=== PATIENT | female | born 1970 | race Caucasian/White ===

== ENCOUNTER 2019-03-27 06:45 | Observation (INO) | payer OTHER ==
[~2019-03-27] VITALS: Ht 162.6 cm; Wt 74.8 kg
--- NOTE | 2019-03-27 06:50 | ED Abdominal Pain ---
General Stated Complaint: ABD PAIN History of Present Illness Date Seen by Provider: Mar 27, 2019 Time Seen by Provider: 06:49 Initial Comments Patient presents emergency department for evaluation of abdominal pain that started last night but became worse this morning and she describes it as intense burning and stabbing pain in her epigastric region that caused her nausea but no vomiting fevers chills diarrhea constipation dysuria hematuria. She denies any chest pain or shortness of breath to me. She says she still has her gallbladder. She appears uncomfortable but nontoxic and says that the pain is easing up since early this morning. She appears to be tachycardic and irregular so an EKG was obtained that showed that she was in atrial fibrillation. She says this would be a new diagnosis for her. Allergies and Home Medications Allergies Coded Allergies: No Known Drug Allergies (Unverified , 03/27/19) Patient Home Medication List Home Medication List Reviewed: Yes Review of Systems Review of Systems Constitutional: no symptoms reported EENTM: No Symptoms Reported Respiratory: No Symptoms Reported Cardiovascular: No Symptoms Reported Gastrointestinal: Abdominal Pain, Nausea Genitourinary: No Symptoms Reported Musculoskeletal: no symptoms reported Skin: no symptoms reported Psychiatric/Neurological: No Symptoms Reported All Other Systems Reviewed Negative Unless Noted: Yes Physical Exam Vital Signs Vital Signs - First Documented 03/27/19 06:50 Temp 98.4 Pulse 96 Resp 18 B/P (MAP) 156/73 (100) Pulse Ox 99 O2 Delivery Room Air Capillary Refill : Height/Weight/BMI Height: '" Weight: lbs. oz. kg; BMI Method: General Appearance: WD/WN, no apparent distress HEENT: PERRL/EOMI Neck: supple Respiratory: no respiratory distress Cardiovascular: tachycardia, irregularly irregular Gastrointestinal: soft; No guarding, No rebound; tenderness (epigastrum primarily, mild ttp in RUQ) Rectal: deferred Extremities: no pedal edema Back: normal inspection Neurologic/Psychiatric: alert, oriented x 3 Skin: warm/dry Progress/Results/Core Measures Results/Orders Lab Results Laboratory Tests Test 03/27/19 06:52 03/27/19 07:49 Range/Units White Blood Count 8.2 4.3-11.0 10^3/uL Red Blood Count 4.86 4.35-5.85 10^6/uL Hemoglobin 14.0 11.5-16.0 G/DL Hematocrit 42 35-52 % Mean Corpuscular Volume 87 80-99 FL Mean Corpuscular Hemoglobin 29 25-34 PG Mean Corpuscular Hemoglobin Concent 33 32-36 G/DL Red Cell Distribution Width 13.6 10.0-14.5 % Platelet Count 313 130-400 10^3/uL Mean Platelet Volume 10.8 H 7.4-10.4 FL Neutrophils (%) (Auto) 48 42-75 % Lymphocytes (%) (Auto) 41 12-44 % Monocytes (%) (Auto) 7 0-12 % Eosinophils (%) (Auto) 3 0-10 % Basophils (%) (Auto) 1 0-10 % Neutrophils # (Auto) 3.9 1.8-7.8 X 10^3 Lymphocytes # (Auto) 3.4 1.0-4.0 X 10^3 Monocytes # (Auto) 0.5 0.0-1.0 X 10^3 Eosinophils # (Auto) 0.3 0.0-0.3 10^3/uL Basophils # (Auto) 0.1 0.0-0.1 10^3/uL Sodium Level 142 135-145 MMOL/L Potassium Level 3.2 L 3.6-5.0 MMOL/L Chloride Level 102 98-107 MMOL/L Carbon Dioxide Level 23 21-32 MMOL/L Anion Gap 17 H 5-14 MMOL/L Blood Urea Nitrogen 11 7-18 MG/DL Creatinine 0.91 0.60-1.30 MG/DL Estimat Glomerular Filtration Rate > 60 BUN/Creatinine Ratio 12 Glucose Level 127 H 70-105 MG/DL Calcium Level 9.4 8.5-10.1 MG/DL Corrected Calcium 8.5-10.1 MG/DL Total Bilirubin 0.5 0.1-1.0 MG/DL Aspartate Amino Transf (AST/SGOT) 46 H 5-34 U/L Alanine Aminotransferase (ALT/SGPT) 46 0-55 U/L Alkaline Phosphatase 113 40-136 U/L Troponin I < 0.30 <0.30 NG/ML Total Protein 7.5 6.4-8.2 GM/DL Albumin 4.6 H 3.2-4.5 GM/DL Lipase 31 8-78 U/L Urine Color YELLOW Urine Clarity CLEAR Urine pH 7.0 5-9 Urine Specific [place] 1.010 L 1.016-1.022 Urine Protein NEGATIVE NEGATIVE Urine Glucose (UA) NEGATIVE NEGATIVE Urine Ketones NEGATIVE NEGATIVE Urine Nitrite NEGATIVE NEGATIVE Urine Bilirubin NEGATIVE NEGATIVE Urine Urobilinogen 0.2 NORMAL MG/DL Urine Leukocyte Esterase TRACE H NEGATIVE Urine RBC (Auto) NEGATIVE NEGATIVE Urine RBC NONE /HPF Urine WBC 5-10 H /HPF Urine Squamous Epithelial Cells 5-10 /HPF Urine Crystals NONE /LPF Urine Bacteria NEGATIVE /HPF Urine Casts NONE /LPF Urine Mucus NEGATIVE /LPF Urine Culture Indicated YES My Orders Orders - JOSEPHINE ORTIZ DO Ct Abdomen/Pelvis W (03/27/19 06:52) Cbc With Automated Diff (03/27/19 06:52) Comprehensive Metabolic Panel (03/27/19 06:52) Lipase (03/27/19 06:52) Troponin I (03/27/19 06:52) Ua Culture If Indicated (03/27/19 06:52) Ekg Tracing (03/27/19 06:52) Ns Iv 1000 Ml (Sodium Chloride 0.9%) (03/27/19 07:00) Antacid Suspension (Mylanta Suspension (03/27/19 07:00) Ondansetron Injection (Zofran Injectio (03/27/19 07:00) Fentanyl Injection (Sublimaze Injection (03/27/19 07:00) Pantoprazole Injection (Protonix Injecti (03/27/19 07:00) Iohexol Injection (Omnipaque 350 Mg/Ml 1 (03/27/19 07:00) Received Contrast (Hold Metformin- Contr (03/27/19 07:00) Sodium Chloride Flush (Catheter Flush Sy (03/27/19 07:00) Ns (Ivpb) (Sodium Chloride 0.9% Ivpb Bag (03/27/19 07:00) Lidocaine 2% Viscous 15 Ml (Xylocaine Vi (03/27/19 07:15) Potassium Chloride (Tablet) (K Dur Table (03/27/19 07:45) Magnesium 1 Gm/100 Ml Ivpb (Magnesium Rosales (03/27/19 07:45) Urine Culture (03/27/19 07:49) Medications Given in ED Current Medications Medications Dose Ordered Sig/Angela Route Start Time Stop Time Status Last Admin Dose Admin Al Hydrox/Mg Hydrox/Simethicone 30 ml ONCE ONCE PO 03/27/19 07:00 03/27/19 07:01 DC 03/27/19 07:15 30 ML Fentanyl Citrate 50 mcg ONCE ONCE IVP 03/27/19 07:00 03/27/19 07:01 DC 03/27/19 07:15 50 MCG Iohexol 100 ml ONCE ONCE IV 03/27/19 07:00 03/27/19 07:04 DC 03/27/19 07:54 80 ML Lidocaine HCl 15 ml ONCE ONCE PO 03/27/19 07:15 03/27/19 07:16 DC 03/27/19 07:16 15 ML Magnesium Sulfate/ Dextrose 100 ml @ 100 mls/hr ONCE ONCE IV 03/27/19 07:45 03/27/19 08:44 03/27/19 08:21 100 MLS/HR Ondansetron HCl 4 mg ONCE ONCE IVP 03/27/19 07:00 03/27/19 07:01 DC 03/27/19 07:02 4 MG Pantoprazole 40 mg ONCE ONCE IV 03/27/19 07:00 03/27/19 07:01 DC 03/27/19 07:15 40 MG Potassium Chloride 40 meq ONCE ONCE PO 03/27/19 07:45 03/27/19 07:46 DC 03/27/19 08:21 40 MEQ Sodium Chloride 10 ml NEEDED PRN IV 03/27/19 07:00 03/27/19 07:54 10 ML Sodium Chloride 100 ml ONCE ONCE IV 03/27/19 07:00 03/27/19 07:04 DC 03/27/19 07:54 80 ML Vital Signs/I&O 03/27/19 06:50 Temp 98.4 Pulse 96 Resp 18 B/P (MAP) 156/73 (100) Pulse Ox 99 O2 Delivery Room Air Progress Progress Note : Progress Note Patient was initially somewhat apprehensive about being admitted at [facility] [place] for her new onset atrial fibrillation. I spoke to her about the recommendations of Dr. Hanley that he would like to monitor her and try and cardiovert her either medically or electrically. I told her that they would also have to discuss her anticoagulation strategy. She wanted to wait for some family to arrive and then make a decision. By the time her family arrived she consented to being admitted. However on reassessment she is now in a normal sinus rhythm. I still do not think that she meets admission criteria given this is new onset atrial fibrillation and likely needs echocardiogram and monitored and they can further discuss anticoagulation strategy. I will defer anticoagulation pain medications at this time as her heart rate and blood pressure are normal. Her abdominal pain is likely from gastritis or enteritis however she does have gallstones. An ultrasound could be obtained if indicated however she has no localized pain in the right upper quadrant at this time. Patient transferred in stable condition, with Dr. Nicolas accepting. Departure Impression Primary Impression: Abdominal pain Additional Impressions: Enteritis New onset a-fib Hypokalemia Disposition: ADMITTED INPATIENT Condition: Stable Departure-Patient Inst. Referrals: NO,LOCAL PHYSICIAN (PCP) Primary Care Physician JOSEPHINE ORTIZ DO Mar 27, 2019 06:50
[2019-03-27] MEDS ORDERED: NS 100 ML (IVPB) BAG IV ONE (07:00)
[2019-03-27] MEDS ORDERED: PANTOPRAZOLE 40 MG (PROTONIX) VIAL IV ONE (07:00)
[2019-03-27] MEDS ORDERED: IOHEXOL 350 MG/ML 100 ML (OMNIPAQUE 350) VIAL IV ONE (07:00)
[2019-03-27] MEDS ORDERED: NS IV 1000 ML 1,000 ML IV SCH (07:00)
[2019-03-27] MEDS ORDERED: fentaNYL INJECTION 100 MCG/2 ML AMP IVP ONE (07:00)
[2019-03-27] MEDS ORDERED: ONDANSETRON 4 MG/2 ML (SDV) Z0FRAN IVP ONE (07:00)
[2019-03-27] MEDS ORDERED: ANTACID SUSP 30 ML UDC (MYLANTA) PO ONE (07:00)
[2019-03-27] MEDS ORDERED: HOLD METFORMIN - RECEIVED CONTRAST 20 ML VIAL IV SCH (07:00)
[2019-03-27] MEDS ORDERED: LIDOCAINE 2% VISCOUS 15 ML UDC PO ONE (07:15)
[2019-03-27 07:17] LABS: BASOPHILS # (AUTO) 0.1 10^3/uL (0.0-0.1); BASOPHILS % (AUTO) 1 % (0-10); EOSINOPHILS # (AUTO) 0.3 10^3/uL (0.0-0.3); EOSINOPHILS % (AUTO) 3 % (0-10); HEMATOCRIT 42 % (35-52); LYMPHOCYTES # (AUTO) 3.4 X 10^3 (1.0-4.0); LYMPHOCYTES % (AUTO) 41 % (12-44); MEAN CORPUSCULAR HEMOGLOBIN 29 PG (25-34); MEAN CORPUSCULAR HGB CONC 33 G/DL (32-36); MEAN CORPUSCULAR VOLUME 87 FL (80-99); MEAN PLATELET VOLUME 10.8 FL (7.4-10.4); MONOCYTES # (AUTO) 0.5 X 10^3 (0.0-1.0); MONOCYTES % (AUTO) 7 % (0-12); NEUTROPHILS # (AUTO) 3.9 X 10^3 (1.8-7.8); NEUTROPHILS % (AUTO) 48 % (42-75); PLATELET COUNT 313 10^3/uL (130-400); RED CELL DISTRIBUTION WIDTH 13.6 % (10.0-14.5); WHITE BLOOD COUNT 8.2 10^3/uL (4.3-11.0)
[2019-03-27 07:29] LABS: BUN/CREATININE RATIO 12; CARBON DIOXIDE 23 MMOL/L (21-32); CHLORIDE 102 MMOL/L (98-107); CREATININE SERUM 0.91 MG/DL (0.60-1.30); GFR ESTIMATED > 60; POTASSIUM 3.2 MMOL/L (3.6-5.0); SODIUM 142 MMOL/L (135-145)
[2019-03-27 07:30] LABS: ALANINE AMINOTRANSFERASE 46 U/L (0-55); ALBUMIN 4.6 GM/DL (3.2-4.5); ALKALINE PHOSPHATASE 113 U/L (40-136); BILIRUBIN,TOTAL 0.5 MG/DL (0.1-1.0); CALCIUM 9.4 MG/DL (8.5-10.1); GLUCOSE 127 MG/DL (70-105); LIPASE 31 U/L (8-78); TOTAL PROTEIN 7.5 GM/DL (6.4-8.2)
[2019-03-27] MEDS ORDERED: KCL 20 MEQ TAB (K-DUR) PO ONE (07:45)
[2019-03-27] MEDS ORDERED: MAGNESIUM 1 GM/100 ML IVPB 100 ML IV ONE (07:45)
[2019-03-27] MEDS: CATHETER FLUSH 10 ML SYR IV PRN (07:54)
[2019-03-27 08:06] LABS: CLARITY,URINE CLEAR; COLOR,URINE YELLOW
[2019-03-27 08:10] LABS: BACTERIA,URINE NEGATIVE /HPF; BILIRUBIN,URINE NEGATIVE (NEGATIVE); GLUCOSE, URINE (UA) NEGATIVE (NEGATIVE); KETONES,URINE NEGATIVE (NEGATIVE); LEUKOCYTE ESTERASE ,URINE TRACE (NEGATIVE); NITRITE,URINE NEGATIVE (NEGATIVE); PROTEIN,URINE NEGATIVE (NEGATIVE); UROBILINOGEN,URINE 0.2 MG/DL (NORMAL)
--- NOTE | 2019-03-27 08:15 | Diagnostic Imaging Report ---
INDICATION: Epigastric pain. CT of the abdomen and pelvis obtained with IV contrast bolus. There is no prior study for comparison. FINDINGS: The visualized portions of the lung bases are clear. There were no pleural fluid collections. There is no free intraperitoneal air. The liver shows mild fatty change with no focal lesion. Gallbladder shows numerous large gallstones filling the gallbladder lumen. The spleen, adrenals, and pancreas appear normal. The right kidney is markedly atrophic and scarred. The left kidney appears normal. There is no retroperitoneal mass or adenopathy. There is no ascites or abscess. There are a few fluid-filled loops of small bowel with some minimal bowel wall thickening. There is no pelvic mass or free fluid. Urinary bladder appears unremarkable. IMPRESSION: There are numerous gallstones filling the gallbladder. There is mild fatty change in the liver. There is no biliary dilatation. The right kidney appears chronically atrophic and scarred. There are a few scattered fluid-filled loops of small bowel with minimal thickening, enteritis cannot be excluded. There is no evidence of abscess. Dictated by: Dictated on workstation # [id number]
--- NOTE | 2019-03-27 10:50 | NUR ---
LUIZ HAAS Panfilo admitted to room 425-1, with an admitting diagnosis of NEW ONSET A-FIB, on 03/27/19 from [facility] via EMS, accompanied by EMS STAFF. LUIZ HAAS introduced to surroundings, call light, bed controls, phone, TV, temperature control, lights, meal times, smoking policy, visitor policy, side rail policy, bathrooms and showers. Patient Rights given to patient in the handbook. LUIZ HAAS verbalizes understanding that [facility] is not responsible for the loss or damage to any personal effects or valuables that are kept in the patients possession during their hospitalization.
--- NOTE | 2019-03-27 11:06 | History & Physical ---
HPI History of Present Illness: 49 yo female came to ER after about an hour of severe epigastric pain, feeling that she needs to vomit. She thought it might be gall bladder, has had similar episode about a year ago. Date seen by provider: Mar 27, 2019 Time Seen by Provider: 11:00 Attending Physician Shanell Nicolas MD PCP [place] [place] Date of Admission Mar 27, 2019 at 09:15 Home Medications Home Medications Reviewed patient Home Medication Reconciliation performed by pharmacy medication reconciliations teletype technician and/or nursing. Patients Allergies have been reviewed. Allergies Coded Allergies: No Known Drug Allergies (Unverified , 03/27/19) ROC-Iijxgx-Xfbohj Hx Patient Social History Alcohol Use: Rarely Uses Recreational Drug Use: No Smoking Status: Never a Smoker 2nd Hand Smoke Exposure: No Recent Foreign Travel: No Contact w/other who traveled: No Recent Hopitalizations: No Recent Infectious Disease Expo: No Past Medical History PMHx: Nonfunctioning right kidney- reports had surgery as a child for vesicoureteral reflux PSurgHx: Right vesicoureteral reflux surgery Family Medical History Significant Family History: Cancer (mother- uterine), Hypertension Review of Systems ([facility]) Constitutional: No fever EENTM: No nose congestion, No throat pain Respiratory: No cough, No short of breath Cardiovascular: No chest pain Gastrointestinal: abdominal pain, constipation; No diarrhea; nausea Genitourinary: No dysuria Musculoskeletal: No joint pain Skin: No rash Psychiatric/Neurological: No Symptoms Reported Reviewed Test Results Reviewed Test Results Lab Laboratory Tests Test 03/27/19 06:52 03/27/19 07:49 03/27/19 19:03 Range/Units White Blood Count 8.2 4.3-11.0 10^3/uL Red Blood Count 4.86 4.35-5.85 10^6/uL Hemoglobin 14.0 11.5-16.0 G/DL Hematocrit 42 35-52 % Mean Corpuscular Volume 87 80-99 FL Mean Corpuscular Hemoglobin 29 25-34 PG Mean Corpuscular Hemoglobin Concent 33 32-36 G/DL Red Cell Distribution Width 13.6 10.0-14.5 % Platelet Count 313 130-400 10^3/uL Mean Platelet Volume 10.8 H 7.4-10.4 FL Neutrophils (%) (Auto) 48 42-75 % Lymphocytes (%) (Auto) 41 12-44 % Monocytes (%) (Auto) 7 0-12 % Eosinophils (%) (Auto) 3 0-10 % Basophils (%) (Auto) 1 0-10 % Neutrophils # (Auto) 3.9 1.8-7.8 X 10^3 Lymphocytes # (Auto) 3.4 1.0-4.0 X 10^3 Monocytes # (Auto) 0.5 0.0-1.0 X 10^3 Eosinophils # (Auto) 0.3 0.0-0.3 10^3/uL Basophils # (Auto) 0.1 0.0-0.1 10^3/uL Sodium Level 142 135-145 MMOL/L Potassium Level 3.2 L 3.6-5.0 MMOL/L Chloride Level 102 98-107 MMOL/L Carbon Dioxide Level 23 21-32 MMOL/L Anion Gap 17 H 5-14 MMOL/L Blood Urea Nitrogen 11 7-18 MG/DL Creatinine 0.91 0.60-1.30 MG/DL Estimat Glomerular Filtration Rate > 60 BUN/Creatinine Ratio 12 Glucose Level 127 H 70-105 MG/DL Calcium Level 9.4 8.5-10.1 MG/DL Corrected Calcium 8.5-10.1 MG/DL Total Bilirubin 0.5 0.1-1.0 MG/DL Aspartate Amino Transf (AST/SGOT) 46 H 5-34 U/L Alanine Aminotransferase (ALT/SGPT) 46 0-55 U/L Alkaline Phosphatase 113 40-136 U/L Troponin I < 0.30 < 0.028 <0.028 NG/ML Total Protein 7.5 6.4-8.2 GM/DL Albumin 4.6 H 3.2-4.5 GM/DL Lipase 31 8-78 U/L Urine Color YELLOW Urine Clarity CLEAR Urine pH 7.0 5-9 Urine Specific [place] 1.010 L 1.016-1.022 Urine Protein NEGATIVE NEGATIVE Urine Glucose (UA) NEGATIVE NEGATIVE Urine Ketones NEGATIVE NEGATIVE Urine Nitrite NEGATIVE NEGATIVE Urine Bilirubin NEGATIVE NEGATIVE Urine Urobilinogen 0.2 NORMAL MG/DL Urine Leukocyte Esterase TRACE H NEGATIVE Urine RBC (Auto) NEGATIVE NEGATIVE Urine RBC NONE /HPF Urine WBC 5-10 H /HPF Urine Squamous Epithelial Cells 5-10 /HPF Urine Crystals NONE /LPF Urine Bacteria NEGATIVE /HPF Urine Casts NONE /LPF Urine Mucus NEGATIVE /LPF Urine Culture Indicated YES Radiology CT abd/pelvis 03/27: "IMPRESSION: There are numerous gallstones filling the gallbladder. There is mild fatty change in the liver. There is no biliary dilatation. The right kidney appears chronically atrophic and scarred. There are a few scattered fluid-filled loops of small bowel with minimal thickening, enteritis cannot be excluded. There is no evidence of abscess." Physical Exam-([facility]) Physical Exam Vital Signs VS - Last 72 Hours, by Label 03/27/19 03/27/19 03/27/19 03/27/19 06:50 09:55 11:45 12:00 Temp 98.4 98.4 99.4 99.4 Pulse 96 92 65 65 Resp 18 18 18 18 B/P (MAP) 156/73 (100) 139/62 (87) 135/85 135/85 (102) Pulse Ox 99 99 99 99 O2 Delivery Room Air Room Air Room Air 03/27/19 03/27/19 03/27/19 15:15 16:00 16:37 Temp 98.4 Pulse 79 74 Resp 18 B/P (MAP) 135/79 (97) Pulse Ox 99 99 O2 Delivery Room Air Room Air Capillary Refill : Less Than 3 Seconds General Appearance: WD/WN, no apparent distress Respiratory: lungs clear, normal breath sounds Cardiovascular: regular rate, rhythm, no murmur Gastrointestinal: normal bowel sounds, non tender, soft Extremities: no pedal edema Neurologic/Psychiatric: alert, normal mood/affect Skin: normal color, warm/dry Assessment/Plan Assessment/Plan Admission Status: Inpatient Order (span 2 midnights) Reason for Inpatient Admission: New onset atrial fibrillation (1) New onset a-fib Status: Acute Assessment & Plan: Converted prior to arrival on floor, Cardiology consulted. Check TSH. (2) Gall bladder stones Status: Acute Assessment & Plan: Discussed no evidence of inflammation/infection, but given her recurrent episodes of pain, may need cholecystectomy, she would like to defer to outpatient for now if possible. (3) Hypokalemia Status: Acute Assessment & Plan: Replaced in ER, recheck. (4) Enteritis Status: Acute (5) Abdominal pain Status: Acute Assessment & Plan: Gall stones and enteritis. Supportive care. (6) DVT prophylaxis Status: Acute Assessment & Plan: Started on Eliquis for atrial fibrillation. SHANELL NICOLAS MD Mar 27, 2019 11:06
--- NOTE | 2019-03-27 11:32 | Diagnostic Imaging Report ---
INDICATION: Cardiac dysrhythmia. PA and lateral views of the chest are obtained. COMPARISON: No previous study is available for comparison at this time. FINDINGS: Heart size and pulmonary vasculature are within normal limits, and the lungs are clear, bilaterally. IMPRESSION: Unremarkable chest. Dictated by: Dictated on workstation # [id number]
[2019-03-27 11:45] VITALS: BP 135/85
[2019-03-27 12:00] VITALS: BP 135/85
[2019-03-27] MEDS ORDERED: IBUP-30 PO (12:02)
[2019-03-27] MEDS: NS W/KCL 40 MEQ/L 1,000 ML IV SCH (14:00)
[2019-03-27 16:00] VITALS: BP 135/79
--- NOTE | 2019-03-27 18:48 | Consultation-Cardiology ---
HPI-Cardiology Cardiology Consultation: Date of Consultation 03/27/19 Date of Admission Attending Physician Kristen Nicolas MD Admitting Physician [facility] Consulting Physician Benedicto HANLEY MD HPI: Time Seen by a Provider: 18:48 Chief Complaint: epigastric discomfort, fatigue, possible palpitations. This is a 49-year-old lady with no past medical or cardiac history who presented with epigastric discomfort to [facility]. She also complains of fatigue for the last 2 months. Occasional palpitations in the past. She was found to be in new onset atrial fibrillation. Subsequently she converted to sinus rhythm. The patient denies any syncope, near-syncope, and lower extremity swelling. She denies any chest pain. She denies active smoking or drug abuse. She also denies any significant alcohol use. She denies any significant snoring. She denies family history of atrial fibrillation. She does have history of CO in the father. Review of Systems-Cardiology Review of Systems Constitutional: As described under HPI; No As described under HPI, No no symptoms reported, No chills, No fever, No lightheadedness; tiredness Eyes: No As described under HPI, No no symptoms reported, No blindness, No blurred vision, No contact lenses, No drainage, No decreased acuity, No foreign body sensation, No pain, No vision change Ears/Nose/Throat: No As described under HPI, No no symptoms reported, No chronic hearing loss, No ear discharge, No ear pain, No nasal drainage, No ulcerations Respiratory: No no symptoms reported; As described under HPI; No As described under HPI, No cough, No orthopnea, No shortness of breath, No SOB with excertion Cardiovascular: No no symptoms reported; As described under HPI; No As described under HPI, No chest pain, No edema, No irregular heart rate, No lightheadedness, No palpitations Gastrointestinal: No no symptoms reported, No As described under HPI, No abdomen distended; abdominal pain; No blood streaked bowels, No constipation, No diarrhea, No nausea, No vomiting, No stool coloration changes Genitourinary: No As described under HPI, No burning, No dysuria, No discharge, No frequency, No flank pain, No hematuria, No urgency : Yes : No Skin: No rash, No skin related problems, No ulcerations Psychiatric/Neurological: No anxiety, No depression, No seizure, No focal weakness, No syncope Hematologic: No bleeding abnormalities All Other Systems Reviewed Negative Unless Noted: Yes [id number]-[id number] Hx Patient Social History Alcohol Use: Rarely Uses Recreational Drug Use: No Smoking Status: Never a Smoker 2nd Hand Smoke Exposure: No Recent Foreign Travel: No Recent Infectious Disease Expo: No Past Medical History PMH As described under Assessment. Allergies and Home Medications Allergies Coded Allergies: No Known Drug Allergies (Unverified , 03/27/19) Home Medications Ibuprofen 200 Mg Tablet, 400-600 MG PO TID PRN for PAIN-MILD, (Reported) Patient Home Medication List Home Medication List Reviewed: Yes Physical Exam-Cardiology Physical Exam Vital Signs/I&O 03/27/19 03/27/19 03/27/19 03/27/19 06:50 09:55 11:45 12:00 Temp 98.4 98.4 99.4 99.4 Pulse 96 92 65 65 Resp 18 18 18 18 B/P (MAP) 156/73 (100) 139/62 (87) 135/85 135/85 (102) Pulse Ox 99 99 99 99 O2 Delivery Room Air Room Air Room Air 03/27/19 03/27/19 03/27/19 15:15 16:00 16:37 Temp 98.4 Pulse 79 74 Resp 18 B/P (MAP) 135/79 (97) Pulse Ox 99 99 O2 Delivery Room Air Room Air Capillary Refill : Less Than 3 Seconds Constitutional: appears stated age, AAO x 3; No apparent distress; well- developed, well-nourished HEENT: PERRL; No discharge; hearing is well preserved, oral hygience is good; No ulceration, No xanthelasmas are seen Neck: No carotid bruit; carotid pulses are 2 + bilaterally Respiratory: chest is bilaterally symmetric, lungs clear to auscultation Cardiovascular: regular rate-rhythm, S1 and S2 Gastrointestinal: soft, audible bowel sounds; No spleenomegaly Rectal: deferred Extremities: normal range of motion, non-tender, normal inspection; No clubbi ng, No cyanosis, No significant edema Neurologic/Psychiatric: no motor/sensory deficits, alert, normal mood/affect, oriented x 3, power is 5/5 both on sides Skin: warm/dry; No rash, No ulcerations Data Review Labs Laboratory Tests 03/27/19 06:52: White Blood Count 8.2, Red Blood Count 4.86, Hemoglobin 14.0, Hematocrit 42, Mean Corpuscular Volume 87, Mean Corpuscular Hemoglobin 29, Mean Corpuscular Hemoglobin Concent 33, Red Cell Distribution Width 13.6, Platelet Count 313, Mean Platelet Volume 10.8H, Neutrophils (%) (Auto) 48, Lymphocytes (%) (Auto) 41, Monocytes (%) (Auto) 7, Eosinophils (%) (Auto) 3, Basophils (%) (Auto) 1, Neutrophils # (Auto) 3.9, Lymphocytes # (Auto) 3.4, Monocytes # (Auto) 0.5, Eosinophils # (Auto) 0.3, Basophils # (Auto) 0.1, Sodium Level 142, Potassium Level 3.2L, Chloride Level 102, Carbon Dioxide Level 23, Anion Gap 17H, Blood Urea Nitrogen 11, Creatinine 0.91, Estimat Glomerular Filtration Rate > 60, BUN/Creatinine Ratio 12, Glucose Level 127H, Calcium Level 9.4, Corrected Calcium , Total Bilirubin 0.5, Aspartate Amino Transf (AST/SGOT) 46H, Alanine Aminotransferase (ALT/SGPT) 46, Alkaline Phosphatase 113, Troponin I < 0.30, Total Protein 7.5, Albumin 4.6H, Lipase 31 03/27/19 07:49: Urine Color YELLOW, Urine Clarity CLEAR, Urine pH 7.0, Urine Specific [place] 1.010L, Urine Protein NEGATIVE, Urine Glucose (UA) NEGATIVE, Urine Ketones NEGATIVE, Urine Nitrite NEGATIVE, Urine Bilirubin NEGATIVE, Urine Urobilinogen 0.2, Urine Leukocyte Esterase TRACEH, Urine RBC (Auto) NEGATIVE, Urine RBC NONE, Urine WBC 5-10H, Urine Squamous Epithelial Cells 5-10, Urine Crystals NONE, Urin e Bacteria NEGATIVE, Urine Casts NONE, Urine Mucus NEGATIVE, Urine Culture Indicated YES ECG Impression ECG Initial ECG Impression: Atrial Fibrillation A/P-Cardiology Assessment/Admission Diagnosis New onset atrial fibrillation, Hypertension Plan This is a 49-year-old lady with new onset atrial fibrillation which subsequently converted spontaneously. I discussed at length with the patient about pathophysiology of atrial fibrillation, stroke prevention, rate versus rhythm control, monitoring, advanced therapy such as ablation. We will request an echocardiogram and nuclear stress testing in the morning. To rule out CAD and structural heart disease. Patient has new onset hypertension as well. Systolic blood pressure of 160 mmHg. We will start Cardizem. Based on gender and hypertension her CHADSVASC score is 2, therefore oral anticoagulation therapy is superior to aspirin for stroke prevention. We'll start her on Eliquis 5 mg twice a day. Risk of bleeding was discussed. Likely discharge tomorrow with an event monitor for 30 days. Implantable loop recorder was also discussed for the future. Epigastric discomfort, first set of troponin was negative. Serial troponins will be recommended. Nuclear stress test in the morning. Hypertension: Cardizem. Patient will likely require sleep apnea screening as an outpatient. All questions were answered in detail. Thank you for your consultation. Please call me if you have any questions. Shorty Hanley MD, FACP, FACC, FSCAI, FHRS, CCDS Interventional Cardiology Cardiac Electrophysiology Vascular Medicine and Endovascular Interventions Clinical Quality Measures DVT/VTE Risk/Contraindication: Risk Factor Score Per Nursin RFS Level Per Nursing on Admit: 1=Low/No VTE PPX Benedicto HANLEY MD Mar 27, 2019 18:48
[2019-03-27] MEDS ORDERED: REGADENOSON 0.4 MG/5 ML SYR (LEXISCAN) IV ONE (19:00)
[2019-03-27] MEDS: DILTIAZEM 120 MG (CARDIZEM CD) CAP PO SCH (19:36)
[2019-03-27] MEDS: APIXABAN 5 MG (ELIQUIS) TABLET PO SCH (19:37)
[2019-03-27 20:00] VITALS: BP 156/81
[2019-03-27 23:20] VITALS: BP 110/70
[2019-03-28] MEDS: NS W/KCL 40 MEQ/L 1,000 ML IV SCH ×2 (00:33→12:57)
[2019-03-28 04:18] VITALS: BP 135/69
[2019-03-28 05:20] LABS: BASOPHILS # (AUTO) 0.1 10^3/uL (0.0-0.1); BASOPHILS % (AUTO) 1 % (0-10); EOSINOPHILS # (AUTO) 0.2 10^3/uL (0.0-0.3); EOSINOPHILS % (AUTO) 3 % (0-10); HEMATOCRIT 39 % (35-52); HEMOGLOBIN 12.5 G/DL (11.5-16.0); LYMPHOCYTES # (AUTO) 1.8 X 10^3 (1.0-4.0); LYMPHOCYTES % (AUTO) 28 % (12-44); MEAN CORPUSCULAR HEMOGLOBIN 29 PG (25-34); MEAN CORPUSCULAR HGB CONC 32 G/DL (32-36); MEAN CORPUSCULAR VOLUME 90 FL (80-99); MEAN PLATELET VOLUME 10.7 FL (7.4-10.4); MONOCYTES # (AUTO) 0.4 X 10^3 (0.0-1.0); MONOCYTES % (AUTO) 7 % (0-12); NEUTROPHILS % (AUTO) 61 % (42-75); PLATELET COUNT 255 10^3/uL (130-400); RED CELL DISTRIBUTION WIDTH 14.3 % (10.0-14.5); WHITE BLOOD COUNT 6.5 10^3/uL (4.3-11.0)
[2019-03-28 05:49] LABS: ALANINE AMINOTRANSFERASE 41 U/L (0-55); ALBUMIN 3.9 GM/DL (3.2-4.5); ALKALINE PHOSPHATASE 89 U/L (40-136); BILIRUBIN,TOTAL 0.5 MG/DL (0.1-1.0); BUN/CREATININE RATIO 14; CALCIUM 8.7 MG/DL (8.5-10.1); CARBON DIOXIDE 23 MMOL/L (21-32); CHLORIDE 111 MMOL/L (98-107); CHOLESTEROL 147 MG/DL (< 200); CREATININE SERUM 0.78 MG/DL (0.60-1.30); GFR ESTIMATED > 60; GLUCOSE 96 MG/DL (70-105); HDL CHOLESTEROL 43 MG/DL (40-60); MAGNESIUM 2.1 MG/DL (1.6-2.4); POTASSIUM 4.2 MMOL/L (3.6-5.0); SODIUM 142 MMOL/L (135-145); TOTAL PROTEIN 6.3 GM/DL (6.4-8.2); TRIGLYCERIDES 98 MG/DL (<150); VLDL CHOLESTEROL 20 MG/DL (5-40)
[2019-03-28 08:00] VITALS: BP 138/90
[2019-03-28] MEDS: DILTIAZEM 120 MG (CARDIZEM CD) CAP PO SCH ×2 (08:03→12:59)
[2019-03-28] MEDS: APIXABAN 5 MG (ELIQUIS) TABLET PO SCH ×2 (08:03→12:59)
[2019-03-28] MEDS: CATHETER FLUSH 10 ML SYR IV PRN ×2 (09:33→11:08)
[2019-03-28] MEDS ORDERED: REGADENOSON 0.4 MG/5 ML SYR (LEXISCAN) IV ONE (10:54)
[2019-03-28 11:06] VITALS: BP 153/97
[2019-03-28] MEDS ORDERED: ONDANSETRON 4 MG/2 ML (SDV) Z0FRAN ONE (11:12)
[2019-03-28] MEDS ORDERED: ONDANSETRON 4 MG/2 ML (SDV) Z0FRAN IVP ONE (11:30)
[2019-03-28 12:00] VITALS: BP 163/86
--- NOTE | 2019-03-28 12:03 | NUR ---
Initial visit; the pt was out for her a procedure. Engaged in rapport building and active listening with pt's . He states his feels ready to go home as soon as possible. No spiritual affiliation. Offered hospitality and compassionate presence.
--- NOTE | 2019-03-28 12:51 | NUR ---
PRIOR TO MEDICATIONS PULSE WAS 68 B/P WAS 163/86. DIET RESUMED AT THIS TIME, THIS RN WILL CONT TO MONITOR THI PATIENT.
--- NOTE | 2019-03-28 14:15 | Cardiology Progress Note ---
Cardiology SOAP Progress Note Subjective: No further symptoms. Objective: I&O/Vital Signs 03/29/19 00:00 Intake Total 100 ml Balance 100 ml Weight (Pounds): 165 Weight (Ounces): 0.0 Weight (Calculated Kilograms): 74.542037 Constitutional: appears stated age, AAO x 3; No apparent distress; well- developed, well-nourished Respiratory: chest is bilaterally symmetric, lungs clear to auscultation Cardiovascular: regular rate-rhythm, S1 and S2 Gastrointestional: soft, audible bowel sounds; No spleenomegaly Extremities: normal range of motion, non-tender, normal inspection; No clubbing, No cyanosis, No significant edema Neurologic/Psychiatric: no motor/sensory deficits, alert, normal mood/affect, oriented x 3, power is 5/5 both on sides Skin: warm/dry; No rash, No ulcerations Results/Procedures: Labs Microbiology 03/27/19 Urine Culture - Final, Complete NO GROWTH A/P: Assessment/Dx: New onset atrial fibrillation, Hypertension Plan: This is a 49-year-old lady with new onset atrial fibrillation which subsequently converted spontaneously. I discussed at length with the patient about pathophysiology of atrial fibrillation, stroke prevention, rate versus rhythm control, monitoring, advanced therapy such as ablation. We will request an echocardiogram and nuclear stress testing in the morning. To rule out CAD and structural heart disease. Patient has new onset hypertension as well. Systolic blood pressure of 160 mmHg. We will start Cardizem. Based on gender and hypertension her CHADSVASC score is 2, therefore oral anticoagulation therapy is superior to aspirin for stroke prevention. We'll start her on Eliquis 5 mg twice a day. Risk of bleeding was discussed. Likely discharge tomorrow with an event monitor for 30 days. Implantable loop recorder was also discussed for the future. Epigastric discomfort, first set of troponin was negative. Serial troponin negative. Nuclear stress test showed no evidence of ischemia. Hypertension: Cardizem. Patient will likely require sleep apnea screening as an outpatient. All questions were answered in detail. Thank you for your consultation. Please call me if you have any questions. Shorty Hanley MD, FACP, FACC, FSCAI, FHRS, CCDS Interventional Cardiology Cardiac Electrophysiology Vascular Medicine and Endovascular Interventions Benedicto HANLEY MD Mar 28, 2019 14:14
[2019-03-28] MEDS ORDERED: DILT120C94 PO (15:02)
--- NOTE | 2019-03-28 15:07 | Cardiology Stress Test Report ---
Stress Test Report Type of NM Stress Test: Test Type: LEXISCAN 0.4MG/5ML Date of Procedure/Referring: Date of Procedure: Mar 28, 2019 PCP Kristen Nicolas MD Admitting Physician [place] Indications: PAF Baseline Heart Rate: 74 Baseline Blood Pressure: Blood Pressure Systolic: 153 Blood Pressure Diastolic: 97 Baseline EKG: Baseline EKG: Sinus rhythm Summary & Conclusion: Summary: The patient was brought to the stress lab after informed consent was taken. S tress test was performed according to the Lexiscan protocol. 0.4 mg of IV Lexiscan was given. Low-grade exercise was performed. Baseline EKG showed sinus rhythm at 74 BPM. Initial blood pressure was 153/97 mmHg. Maximum heart rate was 100 bpm and blood pressure 169/77 mmHg. Patient did not have any chest pain, arrhythmias or ST segment changes during the stress test. 10.71 mCi of Myoview were given for rest imaging and 31.1 mCi of Myoview given for stress imaging. Gated images could not be done. Normal myocardial perfusion imaging during rest and stress. Conclusion: Pharmacological stress test was negative for ischemia. Normal myocardial perfusion imaging during rest and stress. Benedicto BRANHAM MD Mar 28, 2019 15:07
[2019-03-28] MEDS ORDERED: APIX5TAB PO (15:08)
[2019-03-28 15:15] VITALS: BP 153/97
--- NOTE | 2019-03-28 16:33 | Discharge Summary ---
Diagnosis/Chief Complaint Date of Admission Mar 27, 2019 at 10:49 Date of Discharge Mar 28, 2019 at 15:30 Admission Diagnosis Admission Diagnosis See problem list Discharge Diagnosis See problem list Problems/Diagnosis: (1) New onset a-fib Assessment & Plan: Converted prior to arrival on floor, Cardiology consulted. TSH nml. Stress test normal. Echo with nml EF and grade 1 diastolic dysfunction. Cardiology set up for 30 day event monitor on d/c. Started on Eliquis and Cardizem. Needs outpatient sleep study. Status: Acute (2) Gall bladder stones Assessment & Plan: Discussed no evidence of inflammation/infection, but given her recurrent episodes of pain, may need cholecystectomy, she would like to defer to outpatient for now if possible. Needs Surgery referral outpatient. Status: Acute (3) Hypokalemia Assessment & Plan: Replaced in ER, recheck. Status: Resolved Resolution Date/Time: 03/28/19 @ 17:06 (4) Enteritis Status: Acute (5) Abdominal pain Assessment & Plan: Gall stones and enteritis. Supportive care. Status: Acute Chief Complaint/HPI Chief Complaint/HPI 49 yo female came to ER after about an hour of severe epigastric pain, feeling that she needs to vomit. She thought it might be gall bladder, has had similar episode about a year ago. Discharge Summary-Simple/Stand Consultations Discharge Physical Examination Allergies: Coded Allergies: No Known Drug Allergies (Unverified , 03/27/19) Vitals & I&Os Vital Sign - Last 12Hours Date Time Temp Pulse Resp B/P (MAP) Pulse Ox O2 Delivery O2 Flow Rate FiO2 03/28/19 15:15 80 16 153/97 98 Room Air 03/28/19 12:00 97.8 Intake and Output 03/28/19 00:00 Intake Total 740 ml Balance 740 ml General Appearance: Alert, No Acute Distress Respiratory: Clear to Auscultation, Normal Air Movement Cardiovascular: Regular Rate, No Murmurs Psych/Mental Status: Mental Status NL, Mood NL Hospital Course See final discharge diagnosis. Radiology Reviewed CT abd/pelvis 03/27: "IMPRESSION: There are numerous gallstones filling the gallbladder. There is mild fatty change in the liver. There is no biliary dilatation. The right kidney appears chronically atrophic and scarred. There are a few scattered fluid-filled loops of small bowel with minimal thickening, enteritis cannot be excluded. There is no evidence of abscess. Discharge Instructions to patient/family Please see electronic discharge instructions given to patient. Discharge Medications Reviewed and agree with Discharge Medication list on patient's Discharge Instruction sheet Clinical Quality Measures DVT/VTE Risk/Contraindication: Risk Factor Score Per Nursin RFS Level Per Nursing on Admit: 1=Low/No VTE PPX SHANELL JASSO MD Mar 28, 2019 16:33
== END 2019-03-28 15:02 | disposition home or self-care (01) ==
LOC: ER FS 06:47 → UNDOADMOB 09:15 → 4TH 09:15 → OBSVTOIN 10:49 → INTOOBSV 10:49 → 4TH 11:45 → UNDODISOB 03-28 15:30
PROVIDERS: ADMIT Family Medicine; ATTEND Family Medicine
DX: I48.91 Unspecified atrial fibrillation (principal); I10 Essential (primary) hypertension; I82.409 Acute embolism and thrombosis of unspecified deep veins of unspecified lower extremity; K80.20 Calculus of gallbladder without cholecystitis without obstruction; K52.9 Noninfective gastroenteritis and colitis, unspecified; E87.6 Hypokalemia
CPT/HCPCS: 36415; 71046; 74177; 80053; 80061; 81000; 83690; 83735; 84443; 84484; 85025; 85027; 87088; 93005; 93306; 96361; 96365; 96375; G0378

== ENCOUNTER 2019-04-02 08:20 | Outpatient (RCR) | payer OTHER ==
[~2019-04-02 08:20] MED LIST: APIX5TAB PO; DILT120C88 PO; IBUP-30 PO
== END 2019-07-01 | disposition home or self-care (01) ==
LOC: CARD 08:20
PROVIDERS: ATTEND Internal Medicine Interventional Cardiology
DX: I48.0 Paroxysmal atrial fibrillation (principal)

== ENCOUNTER 2019-05-23 13:00 | Outpatient (CLI) | payer OTHER ==
[~2019-05-23 13:00] MED LIST changes: -LIDOCAINE 1% INJ 20 ML 20 ML VIAL INJ ONE; -LIDOCAINE 1% INJ 20 ML 20 ML VIAL ONE
== END 2019-05-23 13:55 | disposition home or self-care (01) ==
LOC: SLEEP 13:00
PROVIDERS: ATTEND Internal Medicine Interventional Cardiology
DX: G47.33 Obstructive sleep apnea (adult) (pediatric) (principal); G47.36 Sleep related hypoventilation in conditions classified elsewhere; I48.0 Paroxysmal atrial fibrillation; I10 Essential (primary) hypertension

== ENCOUNTER → 2019-05-23 | Day surgery (SDC) | payer OTHER ==
[~2019-05-23] VITALS: Ht 162.5 cm; Wt 80.0 kg
[~2019-05-23] MED LIST changes: -DILT120C88 PO; +DILT120C94 PO; +LIDOCAINE 1% INJ 20 ML 20 ML VIAL INJ ONE; +LIDOCAINE 1% INJ 20 ML 20 ML VIAL ONE
[2019-05-23 08:32] VITALS: BP 142/76
[2019-05-23 09:33] VITALS: BP 133/70
--- NOTE | 2019-05-23 16:28 | Implantation of Loop Monitor ---
Implant of Loop Monitior PROCEDURE PHYSICIAN: Shorty Hanley MD IMPLANTATION OF LOOP MONITOR REPORT DATE OF PROCEDURE: 05/23/19 PERFORMING PHYSICIAN: Dr. Matty Hanley. INDICATION: Long-term surveillance of atrial fibrillation PREOP DIAGNOSIS: Long-term surveillance of atrial fibrillation POSTOP DIAGNOSIS: PAF, s/p implantation of loop recorder. PROCEDURE DETAILS: The patient is a 49 female with history of paroxysmal atrial fibrillation requiring long-term surveillance. Therefore implantable loop recorder was discussed and agreed with the patient. Informed consent was taken. All risks and complications were discussed at length. The patient was draped and prepped in the usual sterile fashion. Local anesthesia was lidocaine, which was given in the substernal area close to the 4th intercostal space. Loop monitor was implanted according to the protocol. Steri-Strips were placed at the end of the procedure. There were no complications and the patient tolerated the procedure well. ANESTHESIA: Local anesthesia with lidocaine. COMPLICATIONS: None CONTRAST/FLUOROSCOPY: None CONCLUSION: 1. 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 2. No complication and the patient tolerated the procedure well. Shorty Hanley MD, [facility], CCDS Cardiac Electrophysiology Benedicto HANLEY MD May 23, 2019 4:28 pm POS
== END ==
LOC: CATH 08:07
PROVIDERS: ATTEND Internal Medicine Interventional Cardiology
DX: I48.0 Paroxysmal atrial fibrillation (principal); I10 Essential (primary) hypertension; K59.00 Constipation, unspecified; Z82.49 Family history of ischemic heart disease and other diseases of the circulatory system; Z79.899 Other long term (current) drug therapy; Z79.01 Long term (current) use of anticoagulants; Z80.9 Family history of malignant neoplasm, unspecified
CPT/HCPCS: 33285

== ENCOUNTER → 2020-12-15 | Outpatient (CLI) | payer OTHER ==
[~2020-12-15] MED LIST changes: +CATHETER FLUSH 10 ML SYR IV PRN; +DILT120C88 PO; -DILT120C94 PO; +HOLD METFORMIN - RECEIVED CONTRAST 20 ML VIAL IV SCH; +IOHEXOL 350 MG/ML 100 ML (OMNIPAQUE 350) VIAL IV ONE; +NS 100 ML (IVPB) BAG IV ONE
[2020-12-15 09:28] LABS: BUN/CREATININE RATIO 17; CARBON DIOXIDE 26 MMOL/L (21-32); CHLORIDE 105 MMOL/L (98-107); CREATININE SERUM 0.89 MG/DL (0.60-1.30); GFR ESTIMATED > 60; POTASSIUM 3.9 MMOL/L (3.6-5.0); SODIUM 140 MMOL/L (135-145)
[2020-12-15 09:29] LABS: ALANINE AMINOTRANSFERASE 19 U/L (0-55); ALKALINE PHOSPHATASE 93 U/L (40-136); BILIRUBIN,TOTAL 0.2 MG/DL (0.1-1.0); CALCIUM 9.2 MG/DL (8.5-10.1); GLUCOSE 103 MG/DL (70-105)
[2020-12-15 09:33] LABS: ALBUMIN 4.1 GM/DL (3.2-4.5)
--- NOTE | 2020-12-15 14:54 | Diagnostic Imaging Report ---
PROCEDURE: CT abdomen with contrast only. TECHNIQUE: Multiple contiguous axial images were obtained through the abdomen after the administration of intravenous contrast. Auto Exposure Controls were utilized during the CT exam to meet ALARA standards for radiation dose reduction. INDICATION: Upper abdominal pain. COMPARISON: Ultrasound from 12/04/2020. CT abdomen and pelvis of 11/24/2018. FINDINGS: Lung bases are clear. No pericardial or pleural effusion. No free intraperitoneal air or fluid. Hypoattenuation of the liver raises the possibility of hepatic steatosis. No focal hepatic lesion. Cholelithiasis is again noted as seen on prior CT. Portal vein is patent. No nodularity of the liver surface. The spleen and pancreas are normal. No adrenal mass. Atrophic right kidney with multiple areas of cortical loss likely due to multifocal infarcts that may have been developmental in nature. The left kidney is normal in size measuring 12 cm. No left renal mass. Bowel loops are normal in caliber. No abdominal lymphadenopathy. Normal caliber abdominal aorta. Normal regional skeleton. IMPRESSION: 1. Chronic atrophy of the right kidney is unchanged in appearance since 03/27/2019 and may be due to sequelae of multiple remote infarcts, potentially developmental in nature. 2. Unchanged mild diffuse hepatic steatosis. 3. Unchanged cholelithiasis. Dictated by: Dictated on workstation # [id number]
== END ==
LOC: RAD FS 08:42
PROVIDERS: ATTEND Nurse Practitioner Family
DX: N26.1 Atrophy of kidney (terminal) (principal); K76.0 Fatty (change of) liver, not elsewhere classified; K80.20 Calculus of gallbladder without cholecystitis without obstruction; R93.5 Abnormal findings on diagnostic imaging of other abdominal regions, including retroperitoneum
CPT/HCPCS: 36415; 74160; 80053

== ENCOUNTER 2020-12-23 05:30 | Outpatient (CLI) | payer OTHER ==
[~2020-12-23] VITALS: Ht 160 cm; Wt 70.8 kg
[~2020-12-23 05:30] MED LIST changes: -CATHETER FLUSH 10 ML SYR IV PRN; -HOLD METFORMIN - RECEIVED CONTRAST 20 ML VIAL IV SCH; -IOHEXOL 350 MG/ML 100 ML (OMNIPAQUE 350) VIAL IV ONE; -NS 100 ML (IVPB) BAG IV ONE
[2020-12-23] MEDS ORDERED: APIX5TAB PO (15:32)
[2020-12-23] MEDS ORDERED: LISI10TA25 PO (15:32)
== END 2020-12-23 15:45 | disposition home or self-care (01) ==
LOC: PREOP 05:30
PROVIDERS: ATTEND Surgery
DX: Z01.818 Encounter for other preprocedural examination (principal)

== ENCOUNTER → 2020-12-28 | Outpatient (CLI) | payer OTHER ==
[~2020-12-28] MED LIST changes: +LISI10TA25 PO
== END ==
LOC: LAB FS 10:00
PROVIDERS: ATTEND Surgery
DX: Z01.812 Encounter for preprocedural laboratory examination (principal); K80.10 Calculus of gallbladder with chronic cholecystitis without obstruction; Z20.822 Contact with and (suspected) exposure to COVID-19
CPT/HCPCS: 87635

== ENCOUNTER 2020-12-30 06:55 | Day surgery (SDC) | payer OTHER ==
[2020-12-30] VITALS (13 sets, daily range): BP systolic 108–160; BP diastolic 50–71
[~2020-12-30] VITALS: Ht 168 cm; Wt 70.8 kg
[2020-12-30] MEDS ORDERED: IOPAMIDOL 61% 30 ML (ISOVUE 300) VIAL ONE (07:14)
[2020-12-30] MEDS ORDERED: LIDOCAINE/EPI 1%-1:100,000 (XYLOCAINE) 20ML ONE (07:14)
[2020-12-30] MEDS ORDERED: LACTATED RINGERS 1,000 ML IV PRN (07:15)
[2020-12-30] MEDS ORDERED: ceFAZolin 2 GM IV Premixed 50 ML IV ONE (07:15)
[2020-12-30] MEDS ORDERED: fentaNYL INJ 100 MCG/2 ML AMP ONE (07:33)
[2020-12-30] MEDS ORDERED: MIDAZOLAM 2 MG/2 ML (VERSED) VIAL ONE (07:33)
[2020-12-30 08:05] LABS: BASOPHILS # (AUTO) 0.1 10^3/uL (0.0-0.1); BASOPHILS % (AUTO) 1 % (0-10); EOSINOPHILS # (AUTO) 0.3 10^3/uL (0.0-0.3); EOSINOPHILS % (AUTO) 4 % (0-10); HEMATOCRIT 42 % (35-52); HEMOGLOBIN 13.9 g/dL (11.5-16.0); LYMPHOCYTES % (AUTO) 31 % (12-44); MEAN CORPUSCULAR HEMOGLOBIN 29 pg (25-34); MEAN CORPUSCULAR HGB CONC 33 g/dL (32-36); MEAN CORPUSCULAR VOLUME 88 fL (80-99); MEAN PLATELET VOLUME 10.5 fL (9.0-12.2); MONOCYTES # (AUTO) 0.5 10^3/uL (0.0-1.0); MONOCYTES % (AUTO) 8 % (0-12); NEUTROPHILS # (AUTO) 3.4 10^3/uL (1.8-7.8); NEUTROPHILS % (AUTO) 55 % (42-75); PLATELET COUNT 298 10^3/uL (130-400); WHITE BLOOD COUNT 6.3 10^3/uL (4.3-11.0)
--- NOTE | 2020-12-30 08:09 | Progress Note-Pre Operative ---
Pre-Operative Progress Note H&P Reviewed The H&P was reviewed, patient examined and no changes noted. Time Seen by Provider: 08:06 Date H&P Reviewed: Dec 30, 2020 Time H&P Reviewed: 08:06 Pre-Operative Diagnosis: Cholelithiasis/Cholecystitis, Screening colon, Ga stritis ASHIA PINTO DO Dec 30, 2020 08:09
[2020-12-30] MEDS ORDERED: SEVOFLURANE (ULTANE) 15 ML INHAL SOLN ONE (08:52)
[2020-12-30] MEDS ORDERED: ONDANSETRON 4 MG/2 ML (SDV) Z0FRAN ONE (08:52)
[2020-12-30] MEDS ORDERED: NEOSTIGMINE 3 MG/3 ML VIAL ONE (08:52)
[2020-12-30] MEDS ORDERED: LIDOCAINE PF 2% 5 ML (XYLOCAINE) VIAL ONE (08:52)
[2020-12-30] MEDS ORDERED: GLYCOPYRROLATE 0.2 MG/ML (ROBINUL) 2 ML VIAL ONE (08:52)
[2020-12-30] MEDS ORDERED: proPOfol 200 MG/20 ML (DIPRIVAN) VIAL IV ONE (08:52)
[2020-12-30] MEDS ORDERED: ROCURONIUM 10 MG/ML 5 ML SYRINGE IV ONE (08:52)
--- NOTE | 2020-12-30 09:21 | Progress Note-Post Operative ---
Post-Operative Progess Note Surgeon (s)/Pcb Designer (s) Surgeon ASHIA PINTO DO Pcb Designer: Drake Pre-Operative Diagnosis Cholelithiasis/Cholecystitis, Screening colon, Gastritis Post-Operative Diagnosis Same Procedure & Operative Findings Date of Procedure 12/30/20 Procedure Performed/Findings PROCEDURE: Laparoscopic cholecystectomy with intraoperative cholangiogram. COMPLICATIONS: None. PROCEDURE: The patient was taken to the operating suite and was prepped and draped in sterile fashion. A surgical pause was performed. Just superior to the umbilicus, a 12 mm incision was made. Dissection was taken down to the fascia, which was then scored and grasped with a Mary and the abdomen was then entered. A 0 Vicryl suture was placed in a [id number]-[id number]-cxiwk fashion and a Gerard trocar was placed and secured. Pneumoperitoneum was achieved. A 5mm trochar place in the subxyphoid and 2 in the right upper quadrant. The gallbladder was then grasped and elevated. The gallbladder was very distended and had a large stone making it difficult to grasp the gallbladder. The cystic duct, and cystic artery were then dissected out. Clip was placed on the distal portion of the cystic duct which was then partially transected. An arrow catheter was inserted into the duct. The cholangiogram was then performed. No filing defects and contrast made its way into the duodenum. Catheter removed. Clips were placed on proximal portion of the cystic duct and then the duct was then transected. Clips were placed along the proximal and distal portion of the cystic artery which was then transected. Hook cautery was used to dissect the gallbladder from the gallbladder fossa achieving hemostasis. The gallbladder was placed in an Endobag and removed through the 12 mm trocar site. The abdomen was then reinspected. Copious amounts of irrigation were used to irrigate the abdomen and there were no signs of active bleeding. Hemostasis had been achieved. The 12 mm fascial defect was then closed with 0 Vicryl suture that had been placed in a [id number] fashion. The abdomen was then desufflated, the trocars were removed. The abdomen was then washed and dried. The skin was then closed using 4-0 Monocryl in a subcuticular fashion. The abdomen was washed and dried and Skin Affix was place over incisions. Patient tolerated the procedure well without any complications. Dr. Juan assisted on this case helping to make incisions,close incisions,identify anatomy and hold anatomy out of the way. Anesthesia Type GET Estimated Blood Loss Estimated blood loss (mL): scant Specimens/Packing Specimens Removed GB and contents ASHIA PINTO DO Dec 30, 2020 09:21
--- NOTE | 2020-12-30 09:27 | Progress Note-Post Operative ---
Post-Operative Progess Note Surgeon (s)/Apparel Machinery Instructor (s) Surgeon ASHIA PINTO DO Apparel Machinery Instructor: none Pre-Operative Diagnosis Screening colon, Gastritis Post-Operative Diagnosis Hiatal hernia Gastritis Gastric polyps Cecal polyp int hemorrhoids Procedure & Operative Findings Date of Procedure 12/30/20 Procedure Performed/Findings 1. EGD with bx 2. EGD with snare removal of polyp 3. Colonoscopy with snare polypectomy PROCEDURE NOTE: After informed consent was obtained, the patient was in the OR already intubated, in bed in supine position for the EGD and frog-legged for the colon. Placed the scope down the mouth through the esophagus into the stomach, noted some gastritis, took a picture, pushed into the duodenum. Duodenum looked normal and took a picture. Pulled back and did a biopsy of the antrum as well as biopsy of body of stomach, retroflexed the scope. She had a multiple gastric polyps as well as a hiatal hernia; pictures were taken. I then elected to remove some of the polyps with a snare to send to pathology. I was able to snare three polyps and suction them up, pulled the scope into the GE junction, did a biopsy here and then pushed the scope back into the stomach and suctioned all the air out, then pulled the scope up the esophagus and out the mouth. Switched camera, switched gloves, went down below, started the colonoscopy. Then pushed all the way to the cecum about 150 cm in, took a picture of the appendiceal orifice and noted the ileo-cecal valve. Then slowly withdrew the scope insufflating to look circumferentially at the small looking at the cecum, just outside the cecum I saw a polyp and did a snare polypectomy. Then continued up the ascending colon to the hepatic flexure, down the transverse colon, to the splenic flexure, into the descending colon down into the sigmoid and finally into the rectum, retroflexed in the rectal vault, saw sone minimal internal hemorrhoids and took a picture. Then removed the scope. The patient tolerated the procedure and she was taken to the recovery room. Anesthesia Type GET Estimated Blood Loss Estimated blood loss (mL): scant Specimens/Packing Specimens Removed antral bx body of stomach bx GE jxn bx gastric polyps x 3 cecal polyp ASHIA PINTO DO Dec 30, 2020 09:27
[2020-12-30] MEDS ORDERED: ACHD5005 PO (09:28)
--- NOTE | 2020-12-30 09:29 | Discharge Inst-Surgical ---
Discharge Inst-Surgical Depart Medication/Instructions New, Converted or Re-Newed RX: RX Given to Pt/Family Patient Instructions Follow up Appt: Make appointment for 1 week. [phone] Instructions: No lifting greater than 20 pounds. No strenuous activity. May shower in 24 hours, no tub bath or soaking. Use incentive spirometer at home as directed. No Smoking Skin/Wound Care: May remove bandages in am. You need to leave the Dermabond on incision it will fall off on it's own. Symptoms to Report: Appetite Changes, Extremity Discoloration, Numbness/Tingling, Swelling Increased, Bleeding Excessive, Eyesight Changes, Pain Increased, Urine Color Change, Constipation(Persistent), Fever over 101 degree F, Pain/Pressure in chest, Urinating Difficulty, Cough Up/Vomit Blood, Heart Beat Irreg/Pounding, Pain/Pressure in jaw, Cramps in feet or legs, Lightheadedness, Pain/Pressure in shoulder, Diarrhea(Persistent), Memory Changes Suddenly, Questions/Concerns, Weight gain consecutive days, Dizziness/Fainting, Nausea/Vomiting, Shortness of Breath, Weight gain over 2 pounds If questions or concerns contact your physician Or seek help at emergency department. Activity Activity as Tolerated: Yes Activity Instructions: Avoid Stress to Incision Driving Instructions: No Driving/Refer to Diet Discharge Diet: Avoid Fatty Foods, Low Fat/Low Cholesterol Diet After 24 Hours: Clear Liquid if Nauseous If Any Problems/Questions/Issu: Contact Your Physician, Go to Emergency Room Skin/Wound Care Infection Signs and Symptoms: Increased Redness, Foul Odor of Wound, Increased Drainage, Skin Itchy or Has a Rash, Increased Swelling, Temperature Above 101 F Wound Care Comment: heating pad to shoulder or neck for pain tonight Bathing Instructions: Shower Stitches/[place]/Dermabond Dis: Dermabond Ice Pack: Ice On and Off Site ASHIA PINTO DO Dec 30, 2020 09:29
--- NOTE | 2020-12-30 09:29 | Endoscopy Discharge Instruct ---
Endo Procedure/Findings Findings 1.: Polyp, Gastritis 2.: Hiatal Hernia 3.: Polyp 4.: Internal Hemorrhoids Discharge Instructions - Activity: You might feel a little sleepy until tomorrow. This is due to the medicine you received to relax you. Until tomorrow, you should: NOT drive a car, operate machinery or power tools. NOT drink any alcoholic beverages. NOT make any important decisions or sign importortant papers. Do not return to work until tomorrow, unless otherwise instructed. Resume previous activities tomorrow. Diet: Start by taking liquids. If you tolerate liquids, advance to solid food. 1.: Colonscopy in 5 years 2.: EGD in 1 year Notify Physician - If you experience excessive bleeding, unusual abdominal pain, fever, or chest pain, contact your doctor immediately. ASHIA PINTO DO Dec 30, 2020 09:29
[2020-12-30] MEDS ORDERED: morphine INJ 10 MG/ML 1ML (SYR OR VIAL) IVP ONE (09:30)
[2020-12-30] MEDS ORDERED: ONDANSETRON 4 MG/2 ML (SDV) Z0FRAN IVP PRN (09:30)
[2020-12-30] MEDS ORDERED: HYDROmorphone 2 MG/ML VIAL (DILAUDID) IV ONE (09:30)
--- NOTE | 2020-12-30 12:45 | Diagnostic Imaging Report ---
EXAMINATION: Fluoroscopy at 8:37 AM. INDICATION: Abdominal pain. TECHNIQUE: Fluoroscopic assistance was provided for Dr. Pulido during his laparoscopic cholecystectomy procedure. 9.3 seconds of fluoroscopy time was utilized. 45 spot films of the right upper quadrant were obtained. FINDINGS: There has been opacification of the common bile duct. There is some irregularity of the distal common bile duct and this portion of the duct is difficult to evaluate. There is no clear evidence for a retained calculus. Contrast is seen extending into the small bowel. IMPRESSION: Fluoroscopic assistance was provided for Dr. Pulido. Dictated by: Dictated on workstation # [id number]
--- NOTE | 2020-12-31 07:58 | Anesthesia-General Post-Op ---
General Patient Condition Mental Status/LOC: Same as Preop Cardiovascular: Satisfactory Nausea/Vomiting: Absent Respiratory: Satisfactory Pain: Controlled Complications: Absent Post Op Complications Complications None Follow Up Care/Instructions Patient Instructions None needed. Anesthesia/Patient Condition Patient Condition Patient was seen yesterday and she was doing well after the procedure, no complaints, stable vital signs, no apparent adverse anesthesia problems. RICK MARIO DO Dec 31, 2020 07:58
== END 2020-12-30 14:40 | disposition home or self-care (01) ==
LOC: SDC 06:55
PROVIDERS: ATTEND Surgery
DX: Z12.11 Encounter for screening for malignant neoplasm of colon (principal); K31.7 Polyp of stomach and duodenum; K63.5 Polyp of colon; K29.70 Gastritis, unspecified, without bleeding; K80.10 Calculus of gallbladder with chronic cholecystitis without obstruction; K31.89 Other diseases of stomach and duodenum; K44.9 Diaphragmatic hernia without obstruction or gangrene; K64.8 Other hemorrhoids; K21.9 Gastro-esophageal reflux disease without esophagitis; I10 Essential (primary) hypertension; I48.91 Unspecified atrial fibrillation; D48.5 Neoplasm of uncertain behavior of skin; G47.33 Obstructive sleep apnea (adult) (pediatric); Z99.89 Dependence on other enabling machines and devices; Z79.899 Other long term (current) drug therapy; Z79.01 Long term (current) use of anticoagulants; Z80.9 Family history of malignant neoplasm, unspecified
CPT/HCPCS: 36415; 76000; 84703; 85025; 87081

== ENCOUNTER → 2021-10-12 | Outpatient (CLI) | payer OTHER ==
[~2021-10-12] MED LIST changes: +ACHD5005 PO
--- NOTE | 2021-10-12 10:08 | Diagnostic Imaging Report ---
INDICATION: Back pain with radiation down the right leg. COMPARISON: None. FINDINGS: Frontal and lateral views of the lumbar spine were obtained. Transitional lumbosacral anatomy is noted. Alignment and vertebral heights are maintained. There is no fracture or destructive process. Mild multilevel degenerative changes are noted and consist primarily of lower lumbar facet arthropathy. Limited views of the abdomen demonstrate nonobstructive bowel gas pattern. IMPRESSION: 1. No acute fracture or dislocation of the lumbar spine. 2. Mild multilevel degenerative changes. Dictated by: Dictated on workstation # [id number]
== END ==
LOC: RAD FS 09:20
PROVIDERS: ATTEND Nurse Practitioner Family
DX: M47.816 Spondylosis without myelopathy or radiculopathy, lumbar region (principal)
CPT/HCPCS: 72100

== ENCOUNTER 2022-11-05 03:49 | Emergency (ER) | payer OTHER ==
[~2022-11-05] VITALS: Ht 160 cm; Wt 68.0 kg
--- NOTE | 2022-11-05 04:03 | ED GI ---
General Chief Complaint: Abdominal/GI Problems Stated Complaint: UPPER ABD PAIN History of Present Illness Date Seen by Provider: Nov 05, 2022 Time Seen by Provider: 03:55 Initial Comments 32-year-old female with PMH of Welch's esophagus/on Ozempic for weight loss/A- fib on Eliquis/HTN, is here with complaints of epigastric pain which started around 1 AM today morning, with waxing and waning of intensity. Patient had 2 episode vomiting, 1 at home and 1 in the ER. Patient ate steak and salad for dinner, no one else in her family is ill or has similar symptoms. Patient stated that she has not been eating much in the past couple of days. Denies fever and chills, diarrhea, headache, dizziness, chest pain, palpitations, dysuria. Allergies and Home Medications Allergies Coded Allergies: No Known Drug Allergies (Unverified , 03/27/19) Patient Home Medication List Home Medication List Reviewed: Yes Apixaban (Eliquis) 5 Mg Tablet, 5 MG PO BID, (Reported) Entered as Reported by: OSMAN GROSS on 12/23/20 1532 Hydrocodone Bit/Acetaminophen (HYDROcodone/APAP 5 MG/325 MG TAB) 1 Tab Tab, 1 TAB PO Q8H PRN for PAIN-MODERATE (5-7) Prescribed by: ASHIA PINTO on 12/30/20 0928 Lisinopril (Lisinopril) 10 Mg Tablet, 10 MG PO DAILY, (Reported) Entered as Reported by: OSMAN GROSS on 12/23/20 1532 Review of Systems Review of Systems Constitutional: no symptoms reported EENTM: No Symptoms Reported Respiratory: No Symptoms Reported Cardiovascular: No Symptoms Reported Gastrointestinal: See HPI, Abdominal Pain, Nausea, Vomiting Genitourinary: See HPI Musculoskeletal: see HPI Skin: see HPI Psychiatric/Neurological: See HPI Endocrine: See HPI Hematologic/Lymphatic: See HPI Past Cewvcdy-Iiqrnh-Smnnoi Hx Seasonal Allergies Seasonal Allergies: Yes Past Medical History Surgeries: Yes (procedure on kidney, loop recorder) Respiratory: No Currently Using CPAP: No Currently Using BIPAP: No Cardiac: Yes Atrial Fibrillation, Hypertension Neurological: No Genitourinary: Yes (hx of ureteral reimplantion, nonfunctioning R kidney) Gastrointestinal: Yes Gastroesophageal Reflux, Gall Bladder Disease Musculoskeletal: No Endocrine: No HEENT: No Cancer: No Psychosocial: No Integumentary: No Blood Disorders: No Family Medical History Cancer, Hypertension Physical Exam Vital Signs Vital Signs - First Documented 11/05/22 03:53 Temp 36.2 Pulse 96 Resp 20 B/P (MAP) 139/75 (96) Pulse Ox 100 O2 Delivery Room Air Capillary Refill : Height/Weight/BMI Height: 5'4.00" Weight: 165lbs. 0.0oz. [id number]; 25.08 BMI Method:Stated General Appearance: WD/WN, no apparent distress, mild distress HEENT: PERRL/EOMI Neck: full range of motion Respiratory: chest non-tender, lungs clear, normal breath sounds, no accessory muscle use, respiratory distress Cardiovascular: regular rate, rhythm Gastrointestinal: normal bowel sounds, non tender (Nontender at time of exam in the ER), soft, no organomegaly Extremities: normal range of motion Back: no CVA tenderness Neurologic/Psychiatric: alert, oriented x 3 Skin: normal color Progress/Results/Core Measures Results/Orders Lab Results Laboratory Tests Test 11/05/22 03:57 11/05/22 04:26 Range/Units White Blood Count 10.8 4.3-11.0 10^3/uL Red Blood Count 4.95 3.80-5.11 10^6/uL Hemoglobin 14.2 11.5-16.0 g/dL Hematocrit 42 35-52 % Mean Corpuscular Volume 86 80-99 fL Mean Corpuscular Hemoglobin 29 25-34 pg Mean Corpuscular Hemoglobin Concent 34 32-36 g/dL Red Cell Distribution Width 13.8 10.0-14.5 % Platelet Count 380 130-400 10^3/uL Mean Platelet Volume 10.9 9.0-12.2 fL Immature Granulocyte % (Auto) 0 % Neutrophils (%) (Auto) 40 L 42-75 % Lymphocytes (%) (Auto) 44 12-44 % Monocytes (%) (Auto) 6 0-12 % Eosinophils (%) (Auto) 9 0-10 % Basophils (%) (Auto) 0 0-10 % Neutrophils # (Auto) 4.3 1.8-7.8 10^3/uL Lymphocytes # (Auto) 4.8 H 1.0-4.0 10^3/uL Monocytes # (Auto) 0.7 0.0-1.0 10^3/uL Eosinophils # (Auto) 1.0 H 0.0-0.3 10^3/uL Basophils # (Auto) 0.0 0.0-0.1 10^3/uL Immature Granulocyte # (Auto) 0.0 0.0-0.1 10^3/uL Sodium Level 141 135-145 MMOL/L Potassium Level 3.2 L 3.6-5.0 MMOL/L Chloride Level 104 98-107 MMOL/L Carbon Dioxide Level 21 21-32 MMOL/L Anion Gap 16 H 5-14 MMOL/L Blood Urea Nitrogen 10 7-18 MG/DL Creatinine 0.96 0.60-1.30 MG/DL Estimat Glomerular Filtration Rate 70 BUN/Creatinine Ratio 10 Glucose Level 140 H 70-105 MG/DL Calcium Level 9.9 8.5-10.1 MG/DL Corrected Calcium 9.6 8.5-10.1 MG/DL Total Bilirubin 0.9 0.1-1.0 MG/DL Aspartate Amino Transf (AST/SGOT) 67 H 5-34 U/L Alanine Aminotransferase (ALT/SGPT) 63 H 0-55 U/L Alkaline Phosphatase 117 40-136 U/L Total Protein 7.2 6.4-8.2 GM/DL Albumin 4.4 3.2-4.5 GM/DL Lipase 31 8-78 U/L Serum Alcohol < 10 <10 MG/DL Urine Color YELLOW Urine Clarity CLEAR Urine pH 6.0 5-9 Urine Specific [place] 1.015 L 1.016-1.022 Urine Protein NEGATIVE NEGATIVE Urine Glucose (UA) NEGATIVE NEGATIVE Urine Ketones 1+ H NEGATIVE Urine Nitrite NEGATIVE NEGATIVE Urine Bilirubin NEGATIVE NEGATIVE Urine Urobilinogen 0.2 < = 1.0 MG/DL Urine Leukocyte Esterase NEGATIVE NEGATIVE Urine RBC (Auto) NEGATIVE NEGATIVE Urine RBC NONE /HPF Urine WBC 5-10 H /HPF Urine Squamous Epithelial Cells 2-5 /HPF Urine Crystals NONE /LPF Urine Bacteria FEW H /HPF Urine Casts PRESENT /LPF Urine Hyaline Casts 0-2 H /LPF Urine Mucus MODERATE H /LPF Urine Culture Indicated YES My Orders Orders - JAMARI HERNANDEZ MD Ondansetron Injection (Zofran Injectio (11/05/22 04:15) Cbc With Automated Diff (11/05/22 04:04) Comprehensive Metabolic Panel (11/05/22 04:04) Lactic Acid Analyzer (11/05/22 04:04) Lipase (11/05/22 04:04) Ua Culture If Indicated (11/05/22 04:04) Famotidine Injection (Pepcid Injection) (11/05/22 04:04) Pantoprazole Injection (Protonix Injecti (11/05/22 04:15) Urine Culture (11/05/22 04:26) Alcohol (11/05/22 04:35) Medications Given in ED Current Medications Medications Dose Ordered Sig/Angela Route Start Time Stop Time Status Last Admin Dose Admin Ondansetron HCl 4 mg ONCE ONCE IVP 11/05/22 04:15 11/05/22 04:16 DC 11/05/22 04:11 4 MG Pantoprazole 40 mg ONCE ONCE IV 11/05/22 04:15 11/05/22 04:16 DC 11/05/22 04:18 40 MG Vital Signs/I&O 11/05/22 03:53 Temp 36.2 Pulse 96 Resp 20 B/P (MAP) 139/75 (96) Pulse Ox 100 O2 Delivery Room Air Progress Progress Note : Progress Note 1. ACUTE GERD: - Labs:normal WBC - CMP: unremarkable -Zofran iv/ Pepcid iv/ / Protonix iv. Pt's symptoms resolved with this -CAT scan abdomen not done since patient's symptoms were relieved with the medications given. Advised to return to ER if abdominal pain returns or symptoms worsen. - Advised to eat a bland diet for the net couple of days. - Adequate hydration advised - Advised Maalox liquid as needed for heartburn nad indigestion - Take home packs of Zofran every 4-6 hours as needed for nausea and vomiting, and Pepcid twice a day -Follow-up with PCP and GI doctor in the next 7 days -The patient was seen in the ED, and treated appropriately to presentation at a specific point in time. Patient is informed that there is a possibility that disease and illness can evolve and change in acuity rapidly or slowly after patient is discharged from the ER. Precautionary advice given to the patient for immediate return to ER if symptoms worsen or do not resolve, and to seek josy rgency care sooner rather than later. Pt also advised on the importance of PCP follow up and compliance with management and follow up plan with PCP and/or specialist, as this is part of the management plan. Pt verbally expressed understanding. Departure Impression Primary Impression: GERD (gastroesophageal reflux disease) Additional Impression: Barretts esophagus Disposition: 01 HOME, SELF-CARE Condition: Improved Departure-Patient Inst. Referrals: AYAZ JACINTO APRN (PCP) Primary Care Physician [facility] (Family) Primary Care Physician Patient Instructions: Acid Reflux and GERD in Adults (DC), Welch's Esophagus, Welch's Esophagus (DC) Add. Discharge Instructions: - Advised to eat a bland diet for the net couple of days. - Adequate hydration advised - Advised Maalox liquid as needed for heartburn nad indigestion - Take home packs of Zofran every 4-6 hours as needed for nausea and vomiting, and Pepcid twice a day -Follow-up with PCP and GI doctor in the next 7 days All discharge instructions reviewed with patient and/or family. Voiced understanding. JAMARI HERNANDEZ MD Nov 05, 2022 04:03
[2022-11-05] MEDS ORDERED: FAMOTIDINE 20MG/2ML IV (PEPCID) IV STA (04:04)
[2022-11-05 04:11] LABS: BASOPHILS % (AUTO) 0 % (0-10); EOSINOPHILS % (AUTO) 9 % (0-10); HEMATOCRIT 42 % (35-52); HEMOGLOBIN 14.2 g/dL (11.5-16.0); LYMPHOCYTES # (AUTO) 4.8 10^3/uL (1.0-4.0); LYMPHOCYTES % (AUTO) 44 % (12-44); MEAN CORPUSCULAR HEMOGLOBIN 29 pg (25-34); MEAN CORPUSCULAR HGB CONC 34 g/dL (32-36); MEAN CORPUSCULAR VOLUME 86 fL (80-99); MEAN PLATELET VOLUME 10.9 fL (9.0-12.2); MONOCYTES # (AUTO) 0.7 10^3/uL (0.0-1.0); MONOCYTES % (AUTO) 6 % (0-12); NEUTROPHILS # (AUTO) 4.3 10^3/uL (1.8-7.8); NEUTROPHILS % (AUTO) 40 % (42-75); PLATELET COUNT 380 10^3/uL (130-400); WHITE BLOOD COUNT 10.8 10^3/uL (4.3-11.0)
[2022-11-05] MEDS ORDERED: PANTOPRAZOLE 40 MG (PROTONIX) VIAL IV ONE (04:15)
[2022-11-05] MEDS ORDERED: ONDANSETRON 4 MG/2 ML (SDV) Z0FRAN IVP ONE (04:15)
[2022-11-05 04:30] LABS: BILIRUBIN,URINE NEGATIVE (NEGATIVE); CLARITY,URINE CLEAR; COLOR,URINE YELLOW; GLUCOSE, URINE (UA) NEGATIVE (NEGATIVE); KETONES,URINE 1+ (NEGATIVE); LEUKOCYTE ESTERASE ,URINE NEGATIVE (NEGATIVE); NITRITE,URINE NEGATIVE (NEGATIVE); PROTEIN,URINE NEGATIVE (NEGATIVE)
[2022-11-05 04:30] LABS: ALBUMIN 4.4 GM/DL (3.2-4.5); BILIRUBIN,TOTAL 0.9 MG/DL (0.1-1.0); CALCIUM 9.9 MG/DL (8.5-10.1); CREATININE SERUM 0.96 MG/DL (0.60-1.30); POTASSIUM 3.2 MMOL/L (3.6-5.0); TOTAL PROTEIN 7.2 GM/DL (6.4-8.2)
[2022-11-05 04:34] LABS: BACTERIA,URINE FEW /HPF; HYALINE CASTS, URINE 0-2 /LPF
[2022-11-05] MEDS ORDERED: RX-FAMOTIDINE 20 MG (PEPCID) TAB PPK#2 ONE (05:10)
[2022-11-05] MEDS ORDERED: RX-ONDANSETRON 4 MG ODT (ZOFRAN) PPK #4 ONE (05:10)
[2022-11-05] MEDS: RX-ONDANSETRON 4 MG ODT (ZOFRAN) PPK #4 PO PRN ×2 (05:12→05:16)
[2022-11-05 05:16] VITALS: BP 141/54
[2022-11-05] MEDS ORDERED: RX-FAMOTIDINE 20 MG (PEPCID) TAB PPK#2 PO SCH (09:00)
== END 2022-11-05 05:16 | disposition home or self-care (01) ==
LOC: EDUNIT# 03:49 → ER FS 03:51
DX: K21.9 Gastro-esophageal reflux disease without esophagitis (principal); K22.70 Barrett's esophagus without dysplasia; I48.91 Unspecified atrial fibrillation; Z79.01 Long term (current) use of anticoagulants; Z79.899 Other long term (current) drug therapy
CPT/HCPCS: 36415; 80053; 81000; 83690; 85025; 87088; 99284; G0480; 80320

== ENCOUNTER → 2023-01-31 | Day surgery (SDC) | payer OTHER ==
[~2023-01-31] VITALS: Ht 160 cm; Wt 68.0 kg
[~2023-01-31] MED LIST changes: +LIDOCAINE 1% INJ 20 ML VIAL INJ ONE; +LIDOCAINE 1% INJ 20 ML VIAL ONE
--- NOTE | 2023-01-31 18:50 | OPERATIVE REPORT ---
DATE OF SERVICE: 01/31/2023 PREOPERATIVE DIAGNOSIS: Implantable loop recorder at end of life. PROCEDURE: Explantation of the implantable loop recorder. The patient is a 52-year-old lady who had an implantable loop recorder by Dr. Hanley in 2019 for evaluation of syncope. This has reached end of life. Her insurance company has not allowed implantation of a new device. The old device was removed today. DESCRIPTION OF PROCEDURE: [facility] The left prepectoral area was prepared and draped in the usual sterile fashion. A 1% lidocaine was used for local anesthesia. A small incision was made over the device and the device was removed without difficulty. Wound edges were approximated with one 3.0 Vicryl suture. She tolerated the procedure well. Outpatient followup is advised. Job ID: [id number] DocumentID: [id number] Dictated Date: 01/31/2023 12:47:48 Geographic Analyst Date: 01/31/2023 18:44:00 Dictated By: MARILOU WRAY MD; NANCY; FACP; FACC;
== END ==
LOC: CATH 09:27
PROVIDERS: ATTEND Internal Medicine Cardiovascular Disease
DX: Z45.09 Encounter for adjustment and management of other cardiac device (principal); I48.0 Paroxysmal atrial fibrillation; I11.9 Hypertensive heart disease without heart failure; G47.33 Obstructive sleep apnea (adult) (pediatric); Z79.01 Long term (current) use of anticoagulants; Z99.81 Dependence on supplemental oxygen; Z91.199 Patient's noncompliance with other medical treatment and regimen due to unspecified reason; Z95.9 Presence of cardiac and vascular implant and graft, unspecified
CPT/HCPCS: 33286

== ENCOUNTER → 2023-01-31 | Outpatient (CLI) | payer OTHER ==
[~2023-01-31] MED LIST changes: +CATHETER FLUSH 10 ML SYR IVP PRN; -LIDOCAINE 1% INJ 20 ML VIAL INJ ONE; -LIDOCAINE 1% INJ 20 ML VIAL ONE
[2023-01-31 13:48] VITALS: BP 120/82
== END ==
LOC: CARD 09:25
PROVIDERS: ATTEND Nurse Practitioner Family
DX: I48.0 Paroxysmal atrial fibrillation (principal)
CPT/HCPCS: 78452; 93017; A9502

== ENCOUNTER → 2023-01-31 | Outpatient (CLI) | payer OTHER ==
[~2023-01-31] MED LIST changes: -CATHETER FLUSH 10 ML SYR IVP PRN
== END ==
LOC: CARD 10:00
PROVIDERS: ATTEND Nurse Practitioner Family
DX: I48.0 Paroxysmal atrial fibrillation (principal); I51.7 Cardiomegaly
CPT/HCPCS: 93306